=== PATIENT | female | born 1945 | race Caucasian/White ===

== ENCOUNTER 2018-11-28 05:35 | Inpatient (IN) ==
[2018-11-28] MEDS ORDERED: DILAUDID IM ONE (06:01)
--- NOTE | 2018-11-28 06:49 | PROVIDER DOCUMENTATION ---
HPI-General Adult - General Chief Complaint: Fall Stated Complaint: ANKLE INJURY Time Seen by Provider: 11/28/18 05:48 Source: patient, family Allergies/Adverse Reactions: Patient Allergies Allergy/AdvReac Type Severity Reaction Status Date / Time adhesive Allergy Verified 02/11/13 13:18 Home Medications: Home Medication List Medication Instructions Recorded Confirmed Last Taken Type Gabapentin [Neurontin] 300 mg PO DAILY 02/10/13 11/28/18 11/27/18 08:00 History Losartan/Hctz [Hyzaar 50/12.5 mg] 1 each PO DAILY 02/10/13 11/28/18 11/27/18 08: 00 History Metformin [Glucophage] 1,000 mg PO BID CC 02/10/13 11/28/18 11/27/18 20:00 History Sitagliptin Phos/Metformin HCl 1 each PO DAILY 02/10/13 11/28/18 11/27/18 08:00 History [Janumet 50-1,000 mg Tablet] - History of Present Illness -Gen Adult Nature of Presenting Problems: Pt had a trip and fall, rolled right ankle, now with what appears to be a fracture dislocation, pain is sharp, constant, no radiation, denies weakness, numbness, or tingling, pt denies f/c, lua, cp, sob, cough, ap, n/v/d. Pt is lying in bed in no acute distress. Location of Pain/Injury: reports: lower body (right ankle) Pain Radiation: reports: no radiation Quality of Pain: reports: sharp Onset/Duration: reports: just prior to arrival Timing: reports: still present Context/Activities at Onset: reports: none Modifying Factors: improves with: nothing Associated Symptoms: reports: denies symptoms Similar Symptoms Previously?: No Recently seen or treated by another doctor?: No Review of Systems - Adult - REVIEW OF SYSTEMS - ADULT Constitutional: reports: no symptoms reported Eyes: reports: no symptoms reported Ears, Nose, Mouth & Throat: reports: no symptoms reported Cardiovascular: reports: no symptoms reported Respiratory: reports: no symptoms reported Gastrointestinal: reports: no symptoms reported Genitourinary: reports: no symptoms reported Musculoskeletal: reports: see HPI Integumentary: reports: no symptoms reported Neurological: reports: no symptoms reported Psychiatric: reports: no symptoms reported Endocrine: reports: no symptoms reported Hematologic/Lymphatic: reports: no symptoms reported Allergic/Immunologic: reports: no symptoms reported All Other Systems: Reviewed and Negative Past History - Adult - PAST MEDICAL HISTORY-ADULT Review of Records: reports: Old Records Reviewed, Nursing Assessment Review, Medications Reviewed, Social history reviewed & non-contributory. Physical Exam-General - PHYSICAL EXAM-ADULT Initial Vital Signs Reviewed: Yes - CONSTITUTIONAL General Appearance: appears well - EYES Eyes: PERRL/EOMI - HEAD, EARS, NOSE, MOUTH & THROAT HENMT: normocephalic/atraumatic - NECK Neck: non-tender - RESPIRATORY Respiratory: chest non-tender - CARDIOVASCULAR Cardiovascular: normal peripheral pulses - GASTROINTESTINAL (ABDOMEN) Abdominal Exam: normal bowel sounds - LYMPHATIC Lymphatic: no adenopathy - MUSCULOSKELETAL Back Exam: normal inspection Extremity: other (fracture dislcoation on right ankle, good pusles, neurovascularly intact) - SKIN Integumentary: normal color - NEUROLOGIC Neurologic: asset manager II-XII nml as tested - PSYCHIATRIC Psych/Mental Status: normal mood/affect Progress - PLAN OF CARE/RESULTS Progress/Plan/Lab Results: Vital Signs - 8 hr 11/28/18 05:44 11/28/18 06:30 Temperature 98.0 F Pulse Rate 82 79 Respiratory Rate 18 16 Blood Pressure 164/87 143/81 O2 Sat by Pulse Oximetry 96 96 Orders Category Date Time Status ANKLE COMPLETE RIGHT [RAD] Stat Exams 11/28/18 05:48 Taken LOWER LEG-RIGHT [RAD] Stat Exams 11/28/18 06:43 Ordered Hydromorphone [Dilaudid] Med 11/28/18 06:01 Discontinued 1 mg IM NOW ONE Result Diagrams: 11/28/18 10:49 11/28/18 10:49 - XRAY 1 XRAY: Right XRAY Study: Ankle Impression: See EMR Report (EXAM: ANKLE COMPLETE RIGHT 11/28/2018 HISTORY: fall , deformity TECHNIQUE: Right ankle three views COMMENT: There is dislocation of the ankle mortise anteriorly and medially with fractures of the medial malleolus and distal fibula. There is plantar spurring of the calcaneus. IMPRESSION: Unstable ankle fracture with dislocation. Electronically signed by Stalin Ochoa 11/28/2018 7:01 AM 11/28/18 0701 Interpreting Physician: Stalin Ochoa MD Dictated Date/Time: 11/28/18 0700 cc: Mikhail Flanagan MD; Eli Diego MD) 2 XRAY: Right XRAY Study: Ankle Impression: See EMR Report ( EXAM: ANKLE 2 VIEWS RIGHT 11/28/2018 HISTORY: post- reduction TECHNIQUE: Right ankle two views COMMENT: The dislocation is partially reduced with slight subluxation of the plafond and medially with respect to the talar dome. The medial malleolar fracture is still a displaced by at least 50%. The distal fibular fracture is fairly well aligned. IMPRESSION: Post reduction views as described. Electronically signed by Stalin Ochoa 11/28/2018 9:41 AM 11/28/18 0941 Interpreting Physician: Stalin Ochoa MD Dictated Date/Time: 11/28/18 0940 cc: Johnny Harris MD; Eli Diego MD) 3 XRAY: Right XRAY Study: Tibia/Fibula (EXAM: LOWER LEG-RIGHT 11/28/2018 HISTORY: fall, fracture TECHNIQUE: Right lower leg two views COMMENT: There is no evidence of fracture or dislocation in the upper tibia and fibula. The fracture of the distal fibula is again noted. The knee appears to be intact. There is some chondrocalcinosis in the lateral meniscus. IMPRESSION: Fracture distal fibula. Electronically signed by Stalin Ochoa 11/28/2018 7:02 AM 11/28/18 0702 Interpreting Physician: Stalin Ochoa MD Dictated Date/Time: 0702 cc: Mikhail Flanagan MD; Eli Diego MD) - CONSULTS/PCP/HOSPITALIST Notification Time Discussed: 08:22 Consult Disposition: Admit (Dr. Hood (Ortho) requested we reduce and splint the fracture, will admit (Hospitalist), he plans ORIF tomorrow.) #2 Consult: VERNA Lombardo for Hospitalist Time Discussed: 10:23 (Dr. Caraballo accepted admit ) Reason/Comments: consulted with MAGGY Lombardo about patient. Consult Disposition: Will see in ED, Admit, other (order labs) - CHANGE OF SHIFT REPORT (ED Provider) Report Given and Care Transferred to:: gina Time of Transfer: 07:00 Items Pending: Physician Consult/Arrival (shift change note: pt has unstable bimalleolar fracture-dislocation of ankle; awaiting Ortho [facility] consultant) Procedures - SPLINTING Right Lower Extremity Other Location: right ankle Pre-Procedure Neurovascular Exam: Intact Splint Application (Hand-Made): Stir-Up Applied By: ED Nurse Assisted By: preschool special education teacher Post Procedure Neurovascular Exam: Intact - DISLOCATION REDUCTION Right Ankle Consent Form Signed?: Yes Time-Out Verification Completed?: Yes Pre-Procedure Neurovascular Exam: Intact Conscious Sedation: Yes (moderate ) Reduction Attempts: 1 Post Procedure Neurovascular Exam: Intact Post Reduction Film: Deformity Reduced Post Reduction Splint Applied?: Yes Procedure Comment: patient received 75mcg of Fentanyl and 50mg of Propofol prior to reduction Departure - Departure Date of Disposition Decision: 11/28/18 Time of Disposition Decision: 10:24 DIAGNOSIS: Bimalleolar fracture of right ankle, Dislocation of ankle, closed Disposition: ADMITTED INPATIENT 09 Certified Medical Emergency: Emergent Condition: Stable - Critical Care Note This patient required my direct & personal management of CC.: No Attestation - Physician/ NATALIE Attestation Patient care was provided by Advanced Practice Provider:: No The physician spent face to face time with patient:: Yes Advanced Practice Provider documentation review:: Supervising physician onsite and consulted in the evaluation and care of this patient. The physician did have a face to face encounter with the patient.
--- NOTE | 2018-11-28 07:03 | Diag Imaging Result Doc PS360 ---
EXAM: ANKLE COMPLETE RIGHT 11/28/2018 HISTORY: fall, deformity TECHNIQUE: Right ankle three views COMMENT: There is dislocation of the ankle mortise anteriorly and medially with fractures of the medial malleolus and distal fibula. There is plantar spurring of the calcaneus. IMPRESSION: Unstable ankle fracture with dislocation. Electronically signed by Stalin Ochoa 11/28/2018 7:01 AM
--- NOTE | 2018-11-28 07:05 | Diag Imaging Result Doc PS360 ---
EXAM: LOWER LEG-RIGHT 11/28/2018 HISTORY: fall, fracture TECHNIQUE: Right lower leg two views COMMENT: There is no evidence of fracture or dislocation in the upper tibia and fibula. The fracture of the distal fibula is again noted. The knee appears to be intact. There is some chondrocalcinosis in the lateral meniscus. IMPRESSION: Fracture distal fibula. Electronically signed by Stalin Ochoa 11/28/2018 7:02 AM
[2018-11-28] MEDS ORDERED: DILAUDID IV ONE (07:34)
[2018-11-28] MEDS ORDERED: DIPRIVAN 1% IV ONE (08:24)
[2018-11-28] MEDS ORDERED: FENTANYL IV ONE (08:25)
--- NOTE | 2018-11-28 09:43 | Diag Imaging Result Doc PS360 ---
EXAM: ANKLE 2 VIEWS RIGHT 11/28/2018 HISTORY: post-reduction TECHNIQUE: Right ankle two views COMMENT: The dislocation is partially reduced with slight subluxation of the plafond and medially with respect to the talar dome. The medial malleolar fracture is still a displaced by at least 50%. The distal fibular fracture is fairly well aligned. IMPRESSION: Post reduction views as described. Electronically signed by Stalin Ochoa 11/28/2018 9:41 AM
[2018-11-28 10:54] LABS: URINE SOURCE CLEAN CATCH
--- NOTE | 2018-11-28 10:55 | Diag Imaging Result Doc PS360 ---
EXAM: CHEST-PORTABLE 11/28/2018 HISTORY: preop TECHNIQUE: Erect AP portable at 1043 COMMENT: There is no evidence of acute cardiac or pulmonary disease and no previous studies are available for comparison. IMPRESSION: No acute disease. Electronically signed by Stalin Ochoa 11/28/2018 10:53 AM
[2018-11-28 11:21] LABS: AGAP 14; ALB/GLOB RATIO 1.3; ALBUMIN 3.9 g/dL (3.5-5.0); ALKALINE PHOSPHATASE 76 U/L (32-104); BUN 23 mg/dL (8-22); CALCIUM 9.5 mg/dL (8.8-10.2); CHLORIDE 103 mmol/L (98-107); COSMO 290; CREATININE 0.7 mg/dL (0.5-0.9); ESTIMATED GFR > 60; GLUCOSE 222 mg/dL (70-104); GOT 14 U/L (10-30); GPT 14 U/L (10-36); MAGNESIUM 1.8 mg/dL (1.5-2.7); POTASSIUM 4.1 mmol/L (3.5-5.1); SODIUM 140 mmol/L (136-145); TCO2 23 mmol/L (25-35); TOTAL BILIRUBIN 0.35 mg/dL (0.20-1.00)
[2018-11-28 11:23] LABS: BILIRUBIN URINE NEGATIVE (NEGATIVE); BLOOD URINE NEGATIVE (NEGATIVE); COLOR YELLOW; GLUCOSE URINE NEGATIVE (NEGATIVE); KETONE URINE TRACE mg/dL (NEGATIVE); LEUKOCYTES URINE NEGATIVE (NEGATIVE); NITRITE URINE NEGATIVE (NEGATIVE); PH URINE 5.5; PROTEIN URINE 100 mg/dL (NEGATIVE); SP GRAVITY URINE 1.028; TURBIDITY URINE HAZY (CLEAR); UROBILINOGEN URINE NORMAL (NORMAL)
[2018-11-28 11:37] LABS: INR 0.96; PROTIME 13.6 Seconds (11.0-16.0)
[2018-11-28 11:40] LABS: BASO# 0.03 X1000 (0.0-0.2); BASO% 0.2 % (0.0-0.8); HEMATOCRIT 39.4 % (37.0-47.0); HEMOGLOBIN 13.1 g/dL (12.0-16.0); IMM GRAN# 0.03 X1000 (0.0-0.04); IMM GRAN% 0.2 % (0.0-0.5); LYMPH# 0.75 X1000 (1.2-3.4); LYMPH% 4.9 % (20.5-51.1); MCHC 33.2 g/dL (33-37); MCV 93.1 FL (81-99); MONO# 0.63 X1000 (0.11-0.59); MONO% 4.1 % (1.7-9.3); MPV 12.3 FL (7.4-10.4); NEUT# 13.86 X1000 (1.4-6.5); NEUT% 90.6 % (42.2-75.2); PLT 177 X1000 (130-400); RBC 4.23 XMIL (4.2-5.4); RDW 12.8 % (11.5-14.5)
[2018-11-28 12:00] LABS: HEMOGLOBIN A1C 6.1 % (4.8-6.0)
--- NOTE | 2018-11-28 12:29 | HISTORY AND PHYSICAL ---
PRIMARY CARE PHYSICIAN: Dr. Eli Diego. CHIEF COMPLAINT: Fall, right ankle pain. HISTORY OF PRESENT ILLNESS: Mrs. Marcus is a 73-year-old female with a history of hypertension, diabetes mellitus type 2, and a history of Zxjza-Gkwrulxcs-Zqzvr syndrome who woke up this morning and was going to the bathroom and had a trip and fall. She did not have any syncope, presyncope, loss of consciousness, or head injury. She had immediate right ankle pain with deformity, and she came to the ER for evaluation. In the ER, she was noted to have an unstable right ankle fracture with dislocation, and the ER physician subsequently did conscious sedation and reduced the fracture and put her in a splint. Orthopedics has agreed to see the patient in consult and will admit her for further evaluation. Subjectively, the patient has no acute complaints other than the ankle pain. With regards to her Zina-Parkinson -White, she has not had any incidents for multiple years. She is not on any medication for this. There are no diagnostics at this time. They are pending, as is an EKG. Will admit her for further treatment and evaluation. PAST MEDICAL HISTORY: 1. Hypertension. 2. Type 2 diabetes not requiring insulin. 3. Htwda-Xadgodcty-Ylrbe syndrome. SURGICAL HISTORY: She has had a hysterectomy, back surgery x2. SOCIAL HISTORY: Denies alcohol, tobacco, or drug use. . is at the bedside. FAMILY HISTORY: Both parents from heart disease. REVIEW OF SYSTEMS: A 14-point of systems obtained, found to be negative with the exception of the HPI and one other exception that is cardiovascular. She is complaining of mild dyspnea after walking up one flight of steps and reports occasional orthopnea but denies any PND or lower extremity edema. She denies any chest pain. ALLERGIES: To adhesives. HOME MEDICATIONS: 1. Neurontin 300 mg daily. 2. [place] as needed for pain. 3. Hyzaar 50/12.5 one daily. 4. Glucophage 1000 mg b.i.d. PHYSICAL EXAMINATION: VITAL SIGNS: Blood pressure is 143/81, heart rate 79, respiratory rate 16, O2 sat 96% on nasal cannula. Temperature is 98.0. GENERAL: This is a slightly overweight 73-year-old female lying in a hospital bed in no acute distress. NEUROLOGIC: She is awake, alert, and oriented, follows commands, no focal deficits. HEENT: Head is atraumatic and normocephalic. Pupils are equal, round and reactive to light. Oral mucosa is moist. Trachea is midline. NECK: There is no JVD. CHEST: Clear to auscultation bilaterally. CV: Regular rate and rhythm, S1, S2 noted. No murmurs. GI: Soft, nondistended, nontender. Bowel sounds are active. EXTREMITIES: Right lower extremity in splints. Neurovascular is intact distally. Left lower extremity without edema, clubbing, or cyanosis. DIAGNOSTIC DATA: Multiple lower extremity x-rays show right bimalleolar fracture. Chest x-ray is negative. Laboratory data is pending. ASSESSMENT AND PLAN: 1. Mechanical trip and fall resulting in right ankle fracture. This has been reduced in the ER but will need surgical intervention. Orthopedics has been consulted. Will continue pain management, incentive spirometry, and follow up on lab data. 2. Diabetes mellitus: Will add patterned sugars, sliding scale insulin, check a hemoglobin A1c. 3. History of Djudh-Hyijtmgde-Nssep: Asymptomatic. She is complaining of some mild orthopnea and exertional dyspnea but denies any chest pain. We are checking an EKG. Chest x-ray is negative. We are also awaiting a full set of lab data. 4. Further recommendations to follow. Dictated by VERNA Barnes for Simone Caraballo MD cc: VERNA Barnes MD I have seen and examined Ms Medrano today. Daughter was at the bedside. I have also reviewed her labs and imaging studies. Ms Medrano presents with right ankle bimalleolar fracture after mechanical fall. She has been seen by Dr. Hood and there is plan for surgical intervention tomorrow. I agree with the above HPI and the plan reflects my opinion discussed with the ROLLER HELPER. I also recommend surgery to proceed. BEVERLY
[2018-11-28 12:35] LABS: UR EPITHELIAL CELLS <10 /HPF (<10); URINE BACTERIA NEGATIVE /HPF; URINE CASTS GRANULAR PRESENT; URINE CRYSTALS CA OXALATE PRESENT; URINE WBC <10 /HPF (<10)
[2018-11-28 12:48] LABS: BANDS 4 % (0-1); LYMPHS 8 % (21-51); SEGS 88 % (42-75)
--- NOTE | 2018-11-28 13:02 | Diag Imaging Result Doc PS360 ---
EXAM: ANKLE COMPLETE LEFT - 11/28/2018 HISTORY: ankle pain TECHNIQUE: Left ankle three views COMPARISON: None. FINDINGS: There is soft tissue swelling laterally. There is no fracture or dislocation identified. There are no erosive or destructive changes identified. There is calcaneal spurring noted at the plantar fascia insertion. IMPRESSION: No evidence of fracture or dislocation. Electronically signed by Uriel Mg 11/28/2018 1:00 PM
[2018-11-28] MEDS: HUMULIN R SUBQ SCH ×2 (17:20→22:06)
[2018-11-28] MEDS: MORPHINE IV PRN ×2 (17:21→22:05)
--- NOTE | 2018-11-28 19:16 | CONSULTATION ---
DATE OF CONSULTATION: 11/28/2018 SUBJECTIVE: Ms. Medrano is a 73-year-old female who presented to the emergency department today after a fall. She was found to have a right ankle fracture-dislocation. She was reduced in the ER and then admitted per the hospitalist service secondary to not really being able to go home and be ambulatory on her left leg. She injured her left leg during the fall as well. PAST MEDICAL HISTORY: Hypertension, type 2 diabetes, and Ottsd-Xdozqwuop-Jzvnq syndrome. PAST SURGICAL HISTORY: Back surgery x2 and hysterectomy. SOCIAL HISTORY: She denies any tobacco or alcohol use. FAMILY HISTORY: Is positive heart disease. REVIEW OF SYSTEMS: Positive for this right ankle pain. All other systems are essentially negative. PHYSICAL EXAMINATION: General: Well-developed, well-nourished female. She is in no acute distress. Head and Neck: Normocephalic, atraumatic. Respirations: Nonlabored breathing. Cardiovascular: Regular rate. Abdomen: Is nondistended. Right lower extremity exam, splint is clean, dry, and intact to the ankle. She is able to move the toes well. She has good sensation to light touch to the toes. Good capillary refill to the toes. Left lower extremity exam, she has tenderness to palpation on the lateral aspect of the ankle. There is some ecchymoses there and a little bit of swelling as well. ASSESSMENT: Right ankle fracture-dislocation. PLAN: Looks like they reduced her well in the ER. That medial malleolus is still pretty displaced. I would recommend surgical intervention for this and I went over that with her. We went over the procedure, risks, benefits, potential complications. Risks include, but are not limited to infection, wound healing problems, damage to nerves, arteries, veins, numbness, malunion, nonunion, hardware related issues, continued pain, DVT, and anesthesia related risks. After discussing these with the patient, she expressed understanding wished to proceed. We will plan on open reduction, internal fixation of the right lateral malleolus and medial malleolus in surgery tomorrow. She is n.p.o. after midnight tonight. I am going to order x-rays of the left ankle today since they were not done and we will see those before surgery and if it looks like something is broken there will fix at the same time. cc: Tino Hood MD
[2018-11-29] MEDS: MORPHINE IV PRN ×3 (03:56→17:55)
[2018-11-29 06:16] LABS: AGAP 11; BUN 16 mg/dL (8-22); CALCIUM 9.7 mg/dL (8.8-10.2); CHLORIDE 103 mmol/L (98-107); COSMO 285; CREATININE 0.7 mg/dL (0.5-0.9); ESTIMATED GFR > 60; GLUCOSE 147 mg/dL (70-104); POTASSIUM 3.8 mmol/L (3.5-5.1); SODIUM 141 mmol/L (136-145); TCO2 27 mmol/L (25-35)
[2018-11-29 06:22] LABS: HEMATOCRIT 38.4 % (37.0-47.0); HEMOGLOBIN 12.8 g/dL (12.0-16.0); MCH 31.4 PG (27-31); MCHC 33.3 g/dL (33-37); MCV 94.1 FL (81-99); MPV 12.7 FL (7.4-10.4); RBC 4.08 XMIL (4.2-5.4); RDW 13.2 % (11.5-14.5); WBC 10.07 X1000 (4.8-10.8)
[2018-11-29] MEDS: HUMULIN R SUBQ SCH ×4 (06:33→21:12)
[2018-11-29] MEDS ORDERED: ROBINUL ONE (07:19)
[2018-11-29] MEDS ORDERED: XYLOCAINE-MPF 2% ONE (07:19)
[2018-11-29] MEDS ORDERED: FENTANYL ONE (07:21)
[2018-11-29] MEDS ORDERED: DIPRIVAN 1% ONE (07:21)
[2018-11-29] MEDS ORDERED: KEFZOL 1 GM/D5W 1 GM/50 ML IVPB ONE (07:33)
[2018-11-29] MEDS ORDERED: EPHEDRINE ONE (08:05)
[2018-11-29] MEDS ORDERED: ZOFRAN ONE (08:10)
[2018-11-29] MEDS ORDERED: SODIUM CHLORIDE 0.9% 10 ML ONE (08:41)
[2018-11-29] MEDS ORDERED: DILAUDID ONE (08:41)
[2018-11-29] MEDS: OXY IR PO PRN ×2 (15:24→21:12)
[2018-11-29] MEDS: MIRALAX PO SCH (18:38)
[2018-11-29] MEDS: PERIDEX MT SCH (21:12)
--- NOTE | 2018-11-29 23:28 | OPERATIVE NOTE ---
PROCEDURE DATE: 11/29/2018 PREOPERATIVE DIAGNOSIS: Right bimalleolar ankle fracture-dislocation. POSTOP DIAGNOSIS: Right bimalleolar ankle fracture-dislocation. PROCEDURE: Right open reduction, internal fixation bimalleolar ankle fracture. SURGEON: Dr. Tino Hood. MACHINIST 2ND SHIFT: None. ANESTHESIA: General with LMA. TOURNIQUET TIME: Was just under an hour. IMPLANTS: Medline a 1/3 tubular plate and screws and 4-0 cannulated screws. DISPOSITION: To PACU, hemodynamically stable. INDICATION FOR PROCEDURE: Ms Medrano 73-year-old female who presented to the emergency department yesterday with a sandra ankle fracture-dislocation. She was reduced in the ER and admitted overnight for surgical intervention this morning. I went over with her and her about the risks, benefits, potential complications of surgery. They expressed understanding wished to proceed. PROCEDURE: Ms. Medrano was identified preoperative holding area. The right foot was marked as correct surgical site. She was then wheeled to the operating room, placed supine on the operating table. All bony prominences well padded. She was induced under general anesthesia. LMA was placed. Tourniquet placed to the right thigh. Right lower extremity then prepped with chlorhexidine, gluconate scrub and then ChloraPrep and draped in normal sterile fashion. Surgical pause was performed. We identified the correct patient, correct side and the correct procedure. Preop antibiotics were given. Esmarch was used to exsanguinate the right lower extremity and tourniquet was inflated 300 mmHg. Started with incision of the distal fibula. Dissection was carried down, easily identified our fracture site which was short oblique and reducing that fracture really well and then placed a lag screw which got good purchase with the lag screw. I then placed a 1/3 tubular plate posteriorly as an antiglide plate, placed 3 screws proximally and that keep everything nice and reduced. Images were taken which showed that we had a really good reduction of our distal fibula and hardware all looked to be in good position. I then made an incision over the medial malleolus. There was a small abrasion that was superficial and we stayed just anterior to it. I was able to come down on fracture site, I was going to put a hook plate over there but she was really thin and that would have been very bulky for her so we decided to go and just put 2 cannulated lag screws up so we reduced that medial mal, got it lined up well, placed my guidewires and then placed my screws over the guidewires. Final images were taken which showed that we had good reduction in both the medial and lateral malleolus. All the hardware looked to be in good position as well. External rotation stress test was done which did not show any syndesmotic widening or medial clear space widening. Lateral images showed that the joint looked good and hardware was in good position as well. We then sewed everything in a layered fashion, 0 Vicryl for the deep layer, 2-0 Vicryl for the subcutaneous and nylon on the skin. Adaptic, 4 x 4s, ABD, soft roll, posterior splint was applied. Tourniquet was let down and patient had good cap refill return to the toes. She was then awoken from general anesthesia, moved her own bed and taken to the PACU in stable condition. Postop she will be nonweightbearing right lower extremity. We will more than likely be able to get her out of the hospital hopefully tomorrow. cc: Tino Hood MD
[2018-11-30] MEDS: MORPHINE IV PRN ×2 (01:52→08:31)
--- NOTE | 2018-11-30 01:58 | PROGRESS NOTE ---
DATE: 11/29/2018 SUBJECTIVE: Today, Ms. Medrano refers to be doing a little better. She came out of surgery, and today she has complained of some pain in the ankle. OBJECTIVE: Vital Signs: Blood pressure is 175/74, pulse is 88, respiration is 17, temperature is 98.6 degrees. General: Ms. Medrano is a 73-year-old female. She is in bed, in mild painful distress. HEENT: Mucosa is pink and moist. Anicteric. Acyanotic. Neck: Supple. Chest: Good air entry bilaterally. There were no crepitations, no rhonchi. Cardiovascular: Regular rate and rhythm. No murmurs, no rubs, no gallops. Abdomen: Soft, nontender. Bowel sounds present. Extremities: No pedal edema. The right lower extremity is in an orthopedic cast. MACHINE MAINTENANCE: Patient is awake, alert, and oriented. LABORATORY DATA: WBC is 10.07, hemoglobin is 12.8, platelet count of 178,000. Chemistry is also reviewed, and is completely normal. Glucose is 147. CURRENT MEDICATIONS: Have all been reviewed. ASSESSMENT: 1. Right ankle fracture, secondary to mechanical fall. Patient is status post surgical intervention. 2. Diabetes mellitus, controlled. 3. History of what Rztqk-Kzzosgvxh-Vyxkr. Patient is currently asymptomatic. EKG has been ordered. We are still waiting to see the strip. For now, the heart rate seems to be regular and normal rate. In general, Ms. Medrano is immediate after orthopedic intervention to the right ankle. We will continue controlling her other comorbidities, and await for further recommendations from Orthopedics. cc: Simone Caraballo MD
[2018-11-30] MEDS: OXY IR PO PRN ×3 (05:00→13:40)
[2018-11-30] MEDS ORDERED: LOVENOX SUBQ SCH (06:00)
[2018-11-30 06:21] LABS: HEMATOCRIT 38.1 % (37.0-47.0); HEMOGLOBIN 12.4 g/dL (12.0-16.0); MCH 31.2 PG (27-31); MCHC 32.5 g/dL (33-37); MCV 95.7 FL (81-99); MPV 12.8 FL (7.4-10.4); RBC 3.98 XMIL (4.2-5.4); RDW 13.3 % (11.5-14.5); WBC 11.61 X1000 (4.8-10.8)
[2018-11-30 06:52] LABS: AGAP 13; BUN 11 mg/dL (8-22); CHLORIDE 100 mmol/L (98-107); COSMO 283; CREATININE 0.7 mg/dL (0.5-0.9); ESTIMATED GFR > 60; GLUCOSE 178 mg/dL (70-104); POTASSIUM 3.7 mmol/L (3.5-5.1); SODIUM 140 mmol/L (136-145); TCO2 27 mmol/L (25-35)
[2018-11-30] MEDS: HUMULIN R SUBQ SCH ×2 (08:26→11:08)
[2018-11-30] MEDS: PERIDEX MT SCH (11:07)
[2018-11-30] MEDS: MIRALAX PO SCH (11:08)
--- NOTE | 2018-11-30 11:51 | PROGRESS NOTE ---
DATE: 11/30/2018 SUBJECTIVE: Ms. Medrano is sitting up in the bedside chair. She is feeling really well overall. OBJECTIVE: Right lower extremity exam: Splint is clean, dry, and intact. She is able to dorsiflex and plantar flex her toes. She has good sensation to light touch to the toes and good capillary refill to the toes. ASSESSMENT: Status post right bimalleolar ankle fracture open reduction internal fixation. PLAN: I think Ms. Medrano is doing really well. She is going to be discharged home today. She will follow up with me in 1 week in clinic. She is nonweightbearing right lower extremity. I wrote for her a walker and a wheelchair. cc: Tino Hood MD
[2018-11-30 15:31] VITALS: BP 144/55
--- NOTE | 2018-11-30 19:47 | DISCHARGE SUMMARY ---
ADMISSION DATE: 11/28/2018 DISCHARGE DATE: 11/30/2018 PRINCIPAL DIAGNOSIS: Right bimalleolar ankle fracture dislocation. SURGICAL PROCEDURE: Right open reduction, internal fixation bimalleolar ankle fracture on 11/29/2018. DISCHARGE MEDICATIONS: Percocet for pain control. Durable medical equipment prescription for a walker and a wheelchair. HOSPITAL COURSE: Ms Medrano presented to the emergency department on 11/28/2018 and was admitted per the hospitalist service. We took her to the OR on 11/29/2018 for open reduction, internal fixation, and she has done well since then. Her pain is well controlled. She is nonweightbearing to right lower extremity, and she is ready for discharge. So, she will be discharged home today. She will follow up with me this next 12/05/2018. cc: Tino Hood MD
--- NOTE | 2018-11-30 20:19 | DISCHARGE SUMMARY ---
ADMISSION DATE: 11/28/2018 DISCHARGE DATE: 11/30/2018 DISPOSITION: Home. FOLLOW-UP: 1. Dr. Diego. 2. Dr. Hood. CONSULTATIONS DURING THIS ADMISSION: Orthopedics was consulted. Patient was seen by Dr. Hood. IMAGING STUDIES OF SIGNIFICANCE: 1. Right ankle did show unstable ankle fracture with dislocation. 2. Lower extremity x-ray showed a fracture of the distal fibula. 3. The right ankle after reduction x-ray. 4. A chest x-ray showed no acute disease. 5. The left ankle x-ray shows no evidence of fracture or dislocation. ADMISSION DIAGNOSES: 1. Mechanical trip. 2. Right ankle fracture. 3. Diabetes mellitus. 4. History of Zzgky-Fiwvsrbeb-Rkgob. DISCHARGE DIAGNOSES: 1. Right bimalleolar ankle fracture status post open reduction and internal fixation by Dr. Hood. 2. Diabetes mellitus controlled on oral hypoglycemic agents. 3. History of Horsg-Abpixvdge-Xegut. The patient is asymptomatic. 4. Hypertension, controlled. DISCHARGE MEDICATIONS: 1. Hyzaar 12.5 once daily. 2. Gabapentin 300 mg daily. 3. Janumet 1 tablet daily. 4. Oxycodone 5 mg p.o. q.4 p.r.n. for 7 days. 5. Aspirin 325 b.i.d. for 30 days. PRESENTING COMPLAINT: Right ankle pain. HISTORY OF PRESENTING COMPLAINT: Ms. Medrano is a 73-year-old female with a history of hypertension, diabetes, and Jwzzl-Blmkohlrs-Boeur, who refers to have gone to her bathroom, tripped and fell, and sustained injury to the right ankle. Upon presenting to the emergency department, she was evaluated, and x-ray revealed unstable right ankle fracture with dislocation and bimalleolar fractures. We were consulted for admission for medical comorbidity management, and orthopedics was also consulted for the fracture management. HOSPITAL COURSE: Ms. Medrano got admitted to the surgical floor under telemonitoring. Orthopedist was consulted. Patient was seen by Dr. Hood. Arrangement was made for surgical intervention, which was successfully done. Postoperatively, Ms. Medrano refers to be feeling a lot better. No other complaints except for the pains in the surgical site. All of her other comorbidities have been well controlled. PHYSICAL EXAMINATION: Vital Signs: This morning, blood pressure is 136/72, pulse of 81, respirations 18, temperature 97.6 degrees. Physical exam is unremarkable except for orthopedic cast on the right lower extremity. LABORATORY DATA: The patient's lab work this morning has also been reviewed, and there is no abnormality except for glucose of 178. She is fairly stable for discharge this morning. She will follow up with Dr. Hood within 1 week. TIME: Time spent for discharge was 36 minutes. cc: MD Eli Duarte MD Justin Daigre, MD
== END 2018-11-30 16:12 | disposition home or self-care (01) | DRG 494 ==
LOC: ED 05:35 → EDIPHOLD 11:22 → 4N 12:01
PROVIDERS: ATTEND Internal Medicine
CPT/HCPCS: 71010; 71045; 73590; 73600; 73610; 76000; 80048; 80053; 81001; 82948; 83036; 83735; 84443; 85025; 85027; 85610; 93005; 94761; 94799; 96372; 96374; 97162; 97530; 99285; A9270; J0690; J1170; J1650; J2270; J2405; J3010; XXXXX